=== PATIENT | female | born 1970 | race Two or more races ===

== ENCOUNTER 2018-11-25 09:05 | Emergency (ER) | payer OTHER ==
[~2018-11-25] VITALS: Ht 165.1 cm; Wt 78.0 kg
[2018-11-25] MEDS ORDERED: MUCINEX FAST-M1 EAC8 (09:24)
== END 2018-11-25 12:30 | disposition home or self-care (01) ==
LOC: ER 09:05
DX: B34.9 Viral infection, unspecified (principal)